=== PATIENT | female | born 1975 | race Caucasian/White ===

== ENCOUNTER → 2016-10-06 16:35 | Outpatient (CLI) | payer MEDICAID ==
[2015-04-05 12:54] VITALS: BMI 36.3
[~2016-10-06 16:35] MED LIST: BISOPROLOL-HCT1 EAC1 PO; CATAPRES0.1 MG PO; CLONAZEPAM2 MG/TAB PO; ESTRACE1 MG PO; FISH OIL 1,0001 CA1 PO; HYDROCODONE-APA1 TAB PO; IBUPROFEN800 MG PO; KLONOPIN1 MG PO; PHENERGAN25 M1 PO; VITAMIN B-1000 MCG/M IM
== END | disposition home or self-care (01) ==
LOC: D.MAMMO 07-08 13:15
DX: Z12.31 Encounter for screening mammogram for malignant neoplasm of breast (principal)